=== PATIENT | female | born 1950 | race Caucasian/White ===

== ENCOUNTER → 2020-07-18 | Day surgery (SDC) | payer MEDICARE, OTHER ==
[~2020-07-18] MED LIST: ANTIVERT25 MG PO; ASPIRIN CHEWABL81 MG PO; BACTRIM DS TAB1 EACH PO; BUSPIRONE HCL10 MG PO; EFFEXOR XR150 MG PO; ELIQUIS5 MG PO; GABAPENTIN300 MG PO; METOPROLOL SUC200 MG PO; OMEPRAZOLE40 MG PO; SIMVASTATIN20 MG PO; VENLAFAXINE HC150 MG PO
== END | disposition home or self-care (01) ==
LOC: FAS 06:45
DX: Z12.11 Encounter for screening for malignant neoplasm of colon (principal); K21.9 Gastro-esophageal reflux disease without esophagitis; K57.30 Diverticulosis of large intestine without perforation or abscess without bleeding; I10 Essential (primary) hypertension; M19.90 Unspecified osteoarthritis, unspecified site; E78.5 Hyperlipidemia, unspecified; J45.909 Unspecified asthma, uncomplicated; Z88.0 Allergy status to penicillin; Z80.0 Family history of malignant neoplasm of digestive organs; Z98.84 Bariatric surgery status; Z85.3 Personal history of malignant neoplasm of breast; Z79.899 Other long term (current) drug therapy; Z86.73 Personal history of transient ischemic attack (TIA), and cerebral infarction without residual deficits; Z98.1 Arthrodesis status; Z96.651 Presence of right artificial knee joint; Z20.822 Contact with and (suspected) exposure to COVID-19; Z86.010 Personal history of colon polyps
CPT/HCPCS: J1610; J2250; J2704; J7120

== ENCOUNTER 2021-03-18 20:14 | Emergency (ER) | payer MEDICARE, OTHER | END 2021-03-18 23:15 | disposition home or self-care (01) | LOC: FER 20:14 | DX: M25.552 Pain in left hip (principal); J45.909 Unspecified asthma, uncomplicated; Z86.73 Personal history of transient ischemic attack (TIA), and cerebral infarction without residual deficits; Z88.0 Allergy status to penicillin; Z79.01 Long term (current) use of anticoagulants | CPT/HCPCS: 73502 ==